=== PATIENT | female | born 1975 | race Caucasian/White ===

== ENCOUNTER 2016-07-24 15:47 | Emergency (ER) | payer MEDICARE, MEDICAID ==
[~2016-07-24 15:47] MED LIST: ARIP400S2 IM; CLON0.2T PO; CYCL5TAB PO; LAMO100T2 PO; LISI2.5T PO; LOVA40TA PO; METF500T4 PO; MIRT15TA6 PO; OLAN20TA16 PO
[2016-07-24 16:01] VITALS: BP 126/82; PULSE 88; RESP 20; O2SAT 95
[2016-07-24 16:26] LABS: APPEARANCE,URINE HAZY (CLEAR,HAZY); COLOR,URINE YELLOW (YELLOW)
[2016-07-24 16:27] LABS: OCCULT BLOOD,URINE LARGE (NEGATIVE); UROBILINOGEN,URINE NORMAL (NORMAL)
[2016-07-24 19:21] LABS: BASOPHILS % (AUTO) 0.2 % (0-3); EOSINOPHILS % (AUTO) 1.7 % (0-5); MONOCYTES % (AUTO) 5.7 % (4-12); Mean Corpuscular Hemoglobin 30.1 pg (27.0-35.0); Mean Corpuscular Volume 88.4 fL (81-100); NEUTROPHILS % (AUTO) 80.2 % (40-74); Platelet Count 260 bil/L (150-400)
[2016-07-24] MEDS ORDERED: cefTRIAXone Inj 2,000 MG in Dextrose 5% Minibag Plus 50 ML IV ONE (20:25)
--- NOTE | 2016-07-24 20:26 | ED.REPORT ---
HPI-Abd Pain F Under 42 Date of Service Jul 24, 2016 ED Provider: Myron Wood MD History of Present Illness: OCC This is a 41 year old female with a history of DM, HTN, bipolar disorder, asthma , UTIs presenting to the emergency department complaining of progressively worsening dysuria that began 3 days ago. Associated symptoms include diffuse abdominal pain and nausea. Tylenol has not provided pain relief. Denies decreased PO intake, fever, chills, vomiting, constipation, or diarrhea. Nursing Notes Stated Complaint: POSS UTI/STOMACH PAIN Chief Complaint: Female Abdominal Pain Nursing Notes Reviewed: Yes ([employer] [place] not reconciled) Allergies: Coded Allergies: ciprofloxacin (Verified Allergy, Unknown, UNKNOWN, 07/24/16) pregabalin (Verified Allergy, Unknown, UNKNOWN, 07/24/16) varenicline (Verified Allergy, Unknown, 07/24/16) Sulfa (Sulfonamide Antibiotics) (Verified Adverse Reaction, Severe, GI UPSET, 07/24/16) ibuprofen (Verified Adverse Reaction, Severe, nausea, 07/24/16) varenicline tartrate (Verified Adverse Reaction, Severe, SUICIDAL IDEATION , 07/24/16) Scheduled Amoxicillin (Amoxicillin) 500 Mg Tablet 500 MG PO TID Aripiprazole (Abilify Maintena Inj) 400 Mg Suser.vial 400 MG IM monthly Clonidine (Clonidine) 0.2 Mg Tablet 0.4 MG PO HS Clonidine (Clonidine) 0.2 Mg Tablet 0.2 MG PO QAM Clonidine (Clonidine) 0.2 Mg Tablet 0.2 MG PO daily at 1400 Lamotrigine (Lamotrigine) 100 Mg Tablet 100 MG PO HS Lisinopril (Lisinopril) 2.5 Mg Tablet 2.5 MG PO DAILY Lovastatin (Lovastatin) 40 Mg Tablet 40 MG PO HS Metformin (Metformin) 500 Mg Tablet 500 MG PO BIDWM Mirtazapine (Mirtazapine) 15 Mg Tablet 15 MG PO HS Olanzapine (Olanzapine) 20 Mg Tablet 20 MG PO HS Scheduled PRN Cyclobenzaprine (Cyclobenzaprine) 5 Mg Tablet 5 MG PO HS PRN PRN Spasm Fluconazole (Diflucan) 150 Mg Tablet 150 MG PO ONCE PRN PRN yeast infeciton Phenazopyridine (Phenazopyridine) 200 Mg Tablet 200 MG PO TID PRN PRN dysuria General Time Seen by MD: 20:22 Chief Complaint Dysuria Hx Obtained From: Patient Arrived By: Walk-in Sudden in Onset?: Yes Onset Occurred: 3 days ago Symptom Duration: Since onset Severity: Current: Moderate Pertinent Negative: Pt denies other symptoms Recent Healthcare: No recent doctor visit, No recent hospitalization Similar Sx Previous: No Past Medical History Past Medical History Notes: Last psychiatric hospitalization was 06/10/2015 to 06/15/2015 to [facility]. Past Medical History Per EMR: 1. Bipolar disorder Type I, Depressed type 2. Posttraumatic stress disorder, chronic. 3. Polysubstance dependence. 4. Borderline personality disorder with chronic suicidality. 5. Antisocial personality disorder. 6. Restless leg syndrome 7. Morbid obesity 8. Anxiety 9. Multiple suicide attempts 10. Musculoskeletal Trauma (S/p Lt foot repair in childhood) 11. Asthma 12. UTIs Reports: Diabetes mellitus, Hypertension Past Surgical History Musculoskeletal Trauma (s/p LT foot RPR in childhood) Reports: Hysterectomy Family History Reviewed, not relevant Smoking History Current Every Day Smoker Social History Alcohol Use: Denies alcohol use Drug Use: THC Other Social History: Lives alone, Local resident Ambulatory Status Independent Review of Systems Constitutional: Denies: Chills, Fever Respiratory: Denies: Non-productive cough, Shortness of breath Cardiovascular: Denies: Chest pain GI: Reports: Abdominal pain, Nausea, Denies: Constipation, Diarrhea, Vomiting Female: Reports: Dysuria Complete sys rev & neg: except as marked. Physical Exam Initial Vital Signs Vital Signs (First) Date Time Temp Pulse Resp B/P Pulse Ox O2 Delivery O2 Flow Rate FiO2 07/24/16 16:01 37.5 88 20 126/82 95 Room Air Initial VS: Reviewed, Vital signs normal Head / Eyes: Atraumatic, Normocephalic, PERRL ENT: Mucous membranes moist, Conjunctiva normal, No scleral icterus Neck: Supple, Non-tender, Full range of motion Extremities: Vascular intact, Neuro intact, No swelling, No tenderness Skin: Warm, Dry, No cyanosis Neurologic: Alert, Oriented, Nonfocal Psychiatric: Mood/affect normal General/Constitutional: Awake, Alert Respiratory / Chest: Breath sounds NL, Breath sounds = bilat, No respiratory distress, No rales, No rhonchi, No wheezing Fatigued but cooperative, does not appear toxic Cardiovascular: Heart rate NL, Regular rhythm, Heart sounds NL, Peripheral circulation NL Abdomen: Non-tender, No guarding, No rebound, BS normoactive obese Back: Inspection NL, Non-tender, No CVA tenderness Interpretation & Diagnostics Lab Results Interpretation Result Diagram: 07/24/16189907/24/161899 Test 07/24/16 16:00 07/24/16 19:00 Urine Color Yellow (YELLOW) Urine Appearance Hazy (CLEAR,HAZY) Urine pH 6.0 (5.0-8.0) Urine Specific [employer] 1.030 (1.003-1.035) Urine Protein 100mg/dL (NEG,TRACE) Urine Glucose (UA) Negativemg/dL (NEGATIVE) Urine Ketones Negativemg/dL (NEGATIVE) Urine Occult Blood Large (NEGATIVE) Urine Nitrite Positive (NEGATIVE) Urine Bilirubin Negative (NEGATIVE) Urine Urobilinogen Normalmg/dL (NORMAL) Urine Leukocyte Esterase Small (NEGATIVE) Urine RBC 3-10/hpf (0-2) Urine WBC 0-5/hpf (0-5) Urine Epithelial Cells None/hpf (NONE-MOD) Urine Crystals None seen (NONE SEEN) Urine Bacteria Few/hpf (NONE-FEW) Urine Hyaline Casts None/lpf (NONE) Urine Granular Casts None seen (NONE SEEN) Urine Waxy Casts None seen (NONE SEEN) Urine Red Blood Cell Casts None seen (NONE SEEN) Urine White Blood Cell Casts None seen (NONE SEEN) Urine Mucus None seen (None Seen) Urine Trichomonas None seen (NONE SEEN) Urine Yeast None (NONE SEEN) Urinalysis Comment None Urine Culture Reflexed Indicated White Blood Count 12.5th/mm3 (3.8-10.1) Red Blood Count 4.82mil/mm3 (3.90-5.20) Hemoglobin 14.5g/dL (12.0-15.6) Hematocrit 42.6% (35.0-46.0) Mean Corpuscular Volume 88.4fL (81-100) Mean Corpuscular Hemoglobin 30.1pg (27.0-35.0) Mean Corpuscular Hemoglobin Concent 34.0% (32.0-37.0) Red Cell Distribution Width 13.4% (12.3-15.4) Platelet Count 260bil/L (150-400) Neutrophils (%) (Auto) 80.2% (40-74) Lymphocytes (%) (Auto) 12.0% (14-46) Monocytes (%) (Auto) 5.7% (4-12) Eosinophils (%) (Auto) 1.7% (0-5) Basophils (%) (Auto) 0.2% (0-3) Hold Purple Top Tube Received (Received) Hold Blue Top Tube Received (Received) Sodium Level 138mEq/L (134-144) Potassium Level 4.1mEq/L (3.5-5.2) Chloride Level 100mEq/L (97-108) Carbon Dioxide Level 23mmol/L (18-29) Blood Urea Nitrogen 12mg/dL (6-20) Creatinine 0.64mg/dL (0.57-1.00) Estimat Glomerular Filtration Rate 148mL/min (>59) Glucose Level 126mg/dL (60-99) Calcium Level 9.3mg/dL (8.5-10.1) Total Bilirubin 0.2mg/dL (0.0-1.2) Aspartate Amino Transf (AST/SGOT) 13U/L (0-50) Alanine Aminotransferase (ALT/SGPT) 22U/L (0-32) Alkaline Phosphatase 70U/L (25-150) Total Protein 6.7g/dL (6.4-8.4) Albumin 4.1g/dL (3.4-5.0) Hold Red Top Tube Received (Received) Hold [place] Top Tube Received (Received) Hold [place] Top Tube Received (Received) Lab Results Interpretation: C mild leukocytosis CMP normal UA positive Re-Eval/Medical Decision Med Decision/Clinical Course This is a 41-year-old male well-known to previous psychiatric visits now presents with dysuria for the past several days. She does not appear toxic, but is fatigued. She does not have CVA tenderness, her abdomen is soft nontender. She is polite and cooperative that today. Her urine is positive for markers of infection, she does have a mild leukocytosis. She received an initial IV dose of ceftriaxone as we are sorting things out. She reports amoxicillin works really well for her with UTIs before , she is allergic for quinolones and trimethoprim sulfa, so she is being discharged on empiric course of 10 days of amoxicillin, as well as a prescription for phenazopyridine and dose of Diflucan. Routine precautions reviewed. She is discharged in good condition Source of Hx: Old records Differential Diagnosis: Positive: Urinary tract infection, Negative: Abscess, Acute coronary syndrome, Ectopic preg ruptured, Ectopic , Gun shot wound abdomen, Intrauterine , Pancreatitis, Peritonitis, Pyelonephritis, Stab wound abdomen Counseled Regarding: Diagnosis, Lab results, Need for follow-up Discharge & Departure Primary Impression: Urinary tract infection Urinary tract infection type: acute cystitis Hematuria presence: without hematuria Qualified Code: N30.00 - Acute cystitis without hematuria Disposition: Home Discharge Condition All VS Reviewed: Yes Condition: Stable Additional Instructions: 1. You received an injection of the antibiotic ceftriaxone tonight. He can start the prescription for amoxicillin tomorrow. 2. Take amoxicillin 500 mg 3 times a day for 10 days. 3. Take phenazopyridine 200 mg 3 times a day as needed for painful urination. Note: This medication has a side effect of turning your urine orange. 4. Continue to drink plenty of fluids 5. Symptoms are expected to be improving rapidly with antibiotics. 6. We sent a urine culture tonight - this can take a few days for results and is to confirm that you are on the right antibiotics. Call [phone] for results in a few days. 7. If you develop a yeast infection after the antibiotics as can occasionally happen, take diflucan 150mg one tab x1. 8. Follow up with your regular doctor. Referrals: Jodi Butcher (PCP) Scribe Attestation Portions of this note were transcribed by Roro Infante. I, Dr. Wood personally performed the history, physical exam and medical decision-making; I reviewed and confirmed the accuracy of the information in the transcribed note. Signed by: clemencia Graves. 07/24/2016, 23:30. Myron Wood MD Jul 24, 2016 20:26 RORO INFANTE Jul 24, 2016 20:34
[2016-07-24] MEDS ORDERED: HYDROmorphone 0.5 mg/0.5 mL iSecure Syringe IVPUSH ONE (20:35)
[2016-07-24] MEDS ORDERED: Phenazopyridine 97.5 mg Tablet PO ONE (20:35)
[2016-07-24] MEDS ORDERED: PHEN-777 PO (20:59)
[2016-07-24] MEDS ORDERED: AMOX500T2 PO (20:59)
[2016-07-24] MEDS ORDERED: FLUC150T48 PO (20:59)
[2016-07-24 21:18] VITALS: BP 130/82; PULSE 92; RESP 18; O2SAT 95
== END 2016-07-24 21:18 | disposition home or self-care (01) ==
LOC: SED 15:47
DX: N30.00 Acute cystitis without hematuria (principal); B96.20 Unspecified Escherichia coli [E. coli] as the cause of diseases classified elsewhere; I10 Essential (primary) hypertension; J45.909 Unspecified asthma, uncomplicated; E11.9 Type 2 diabetes mellitus without complications; Z79.84 Long term (current) use of oral hypoglycemic drugs; F17.200 Nicotine dependence, unspecified, uncomplicated; Z88.1 Allergy status to other antibiotic agents; Z88.2 Allergy status to sulfonamides; Z88.8 Allergy status to other drugs, medicaments and biological substances
CPT/HCPCS: 80053; 81000; 85025; 87077; 87086; 87088; 87186; 96365; 96375; 99285; J0696; J1170

== ENCOUNTER 2016-09-16 00:43 | Emergency (ER) | payer MEDICARE, MEDICAID ==
[~2016-09-16] VITALS: Ht 165.1 cm; Wt 135.0 kg
[~2016-09-16 00:43] MED LIST changes: +AMOX500T2 PO; +FLUC150T48 PO; +PHEN-777 PO
[2016-09-16 00:45] VITALS: BP 120/89; PULSE 79; RESP 18; O2SAT 96
[2016-09-16] MEDS ORDERED: _Nitrofurantoin Macrocrystal 100 mg Capsule PO SCH (01:40)
[2016-09-16] MEDS ORDERED: HYDROcodone-APAP 5-325 mg Tablet PO ONE (01:40)
[2016-09-16] MEDS ORDERED: _Ondansetron ODT 4 mg Tablet PO PRN (01:40)
[2016-09-16] MEDS ORDERED: _HYDROcodone/APAP 5-325 mg Tablet PO PRN (01:40)
[2016-09-16] MEDS ORDERED: Ondansetron 8 mg ODT Tablet PO ONE (01:40)
--- NOTE | 2016-09-16 01:40 | ED.REPORT ---
HPI- Female Date of Service Sep 16, 2016 ED Provider: Myron Wood MD This is a 41 year old female with a history of DM, HTN, bipolar disorder, asthma , and UTIs presents to the ED due to a UTI symptoms that have not resolved. She finished 2 courses of antibiotics 3 to 4 days ago to treat the infection. Associated symptoms include kidney pain and nausea. She denies fever and vomiting. Nursing Notes Stated Complaint: UTI Chief Complaint: Female Abdominal Pain Nursing Notes Reviewed: Yes Allergies: Coded Allergies: ciprofloxacin (Verified Allergy, Unknown, UNKNOWN, 07/24/16) pregabalin (Verified Allergy, Unknown, UNKNOWN, 07/24/16) varenicline (Verified Allergy, Unknown, 07/24/16) Sulfa (Sulfonamide Antibiotics) (Verified Adverse Reaction, Severe, GI UPSET, 07/24/16) ibuprofen (Verified Adverse Reaction, Severe, nausea, 07/24/16) varenicline tartrate (Verified Adverse Reaction, Severe, SUICIDAL IDEATION , 07/24/16) Scheduled Amoxicillin (Amoxicillin) 500 Mg Tablet 500 MG PO TID Aripiprazole (Abilify Maintena Inj) 400 Mg Suser.vial 400 MG IM monthly Clonidine (Clonidine) 0.2 Mg Tablet 0.4 MG PO HS Clonidine (Clonidine) 0.2 Mg Tablet 0.2 MG PO QAM Clonidine (Clonidine) 0.2 Mg Tablet 0.2 MG PO daily at 1400 Lamotrigine (Lamotrigine) 100 Mg Tablet 100 MG PO HS Lisinopril (Lisinopril) 2.5 Mg Tablet 2.5 MG PO DAILY Lovastatin (Lovastatin) 40 Mg Tablet 40 MG PO HS Metformin (Metformin) 500 Mg Tablet 500 MG PO BIDWM Mirtazapine (Mirtazapine) 15 Mg Tablet 15 MG PO HS Olanzapine (Olanzapine) 20 Mg Tablet 20 MG PO HS Scheduled PRN Cyclobenzaprine (Cyclobenzaprine) 5 Mg Tablet 5 MG PO HS PRN PRN Spasm Fluconazole (Diflucan) 150 Mg Tablet 150 MG PO ONCE PRN PRN yeast infeciton Fluconazole (Diflucan) 150 Mg Tablet 150 MG PO ONCE PRN PRN yeast infection Phenazopyridine (Phenazopyridine) 200 Mg Tablet 200 MG PO TID PRN PRN dysuria General Time Seen by MD: 01:25 Chief Complaint Dysuria Hx Obtained From: Patient Arrived By: Walk-in Sudden in Onset?: Yes Onset Occurred: More than a week ago... (2 weeks) Symptom Duration: Since onset (2 weeks) Recent Healthcare: Recent doctor visit Similar Sx Previous: Yes Past Medical History Past Medical History Notes: Last psychiatric hospitalization was 06/10/2015 to 06/15/2015 to [facility]. Past Medical History Per EMR: 1. Bipolar disorder Type I, Depressed type 2. Posttraumatic stress disorder, chronic. 3. Polysubstance dependence. 4. Borderline personality disorder with chronic suicidality. 5. Antisocial personality disorder. 6. Restless leg syndrome 7. Morbid obesity 8. Anxiety 9. Multiple suicide attempts 10. Musculoskeletal Trauma (S/p Lt foot repair in childhood) 11. Asthma 12. UTIs Reports: Diabetes mellitus, Hypertension Past Surgical History Musculoskeletal Trauma (s/p LT foot RPR in childhood) Reports: Hysterectomy Family History Reviewed, not relevant Smoking History Unknown if Ever Smoker Social History Alcohol Use: Denies alcohol use Drug Use: THC Other Social History: Lives alone, Local resident Ambulatory Status Independent Review of Systems Constitutional: Denies: Fever GI: Denies: Vomiting Female: Reports: Dysuria, Urinary urgency Complete sys rev & neg: except as marked. Physical Exam Initial Vital Signs Vital Signs (First) Date Time Temp Pulse Resp B/P Pulse Ox O2 Delivery O2 Flow Rate FiO2 09/16/16 00:45 36.2 79 18 120/89 96 Room Air Initial VS: Reviewed, Vital signs normal Head / Eyes: Atraumatic, Normocephalic, PERRL ENT: Mucous membranes moist, Conjunctiva normal Neck: Supple, Non-tender Respiratory: Breath sounds normal, Clear to auscultation Cardiovascular: Regular rate & rhythm, Heart sounds normal Abdomen / GI: Soft, Non-tender, No guarding Extremities: Vascular intact, Neuro intact, No swelling Skin: Warm, Dry Female Genitourinary: Exam deferred General/Constitutional: Awake, Cooperative normal mood calm and cooperative Psychiatric: Affect NL, Not suicidal did not assault staff Interpretation & Diagnostics Interpretation & Diagnostics: Recent urine culture demonstrates Escherichia coli resistant to amoxicillin Re-Eval/Medical Decision Med Decision/Clinical Course This is a 41-year-old female well known to the emergency Department from previous visits, who presents calm and collected today complaining of dysuria. An Escherichia coli UTI, and records indicate a recent culture indicating resistance to amoxicillin, but due to the patient's allergy profile it appears she was treated with 2 courses amoxicillin, which she finished 4 days ago, but is now having worsening dysuria, little bit of flank discomfort low but of nausea. She has had no fever. On clinical exam she appears well-she is not febrile, not clinically toxic or ill, does not have overt CVA tenderness. She is status post a hysterectomy. The patient is allergic to sulfa, allergic to Cipro. Floxin, and is insistent to amoxicillin-Macrodantin sensitivity was demonstrated, and the patient once or twice a day medication and she had difficulty with the multiple doses for amoxicillin. I think this is reasonable. She is being discharged in attending course of Macrodantin, she is given a prepack for some hydrocodone and ondansetron for symptomatic management, and I written a dose of Diflucan for use once the course of Avelox is complete. The need for follow-up is reviewed. Patient is discharged in stable condition. Source of Hx: Old records Differential Diagnosis: Positive: Urinary tract infection, Negative: , complete, , incomplete, , inevitable, , missed, Ectopic Counseled Regarding: Diagnosis, Lab results, Need for follow-up, When/why to return to ED Discharge & Departure Impression: Primary Impression: Urinary tract infection Urinary tract infection type: acute cystitis Hematuria presence: without hematuria Qualified Code: N30.00 - Acute cystitis without hematuria Disposition: Home Discharge Condition All VS Reviewed: Yes Condition: Stable Additional Instructions: 1. Your last urine culture indicated an E. Coli bacteria infection resistant to amoxicillin, which would explain why you are having symptoms despite that medication. 2. Take the antibiotic macrodantin 100mg twice a day for ten days. 3. You can take diflucan 150mg after finishing the antibiotics to prevent a yeast infection. 4. Call [phone] for urine culture results in 2-3 days to help confirm this is the best antibiotic. 5. Take ondansetron 8mg (let dissolve under tongue) up to every 4 hours as needed. 6. Return if new/worsening symptoms: fever, increase Nausea/vomiting, etc.. Referrals: Jodi Butcher (PCP) Scribe Attestation Portion of this note were transcribed by Mariana Lua. I, Dr. Wood, personally performed the history, physical exam, and medical decision-making: I reviewed and confirmed the accuracy for the information in the transcribed note. Signed by: clemencia Arteaga, 09/16/16 0300 copies to: Jodi Butcher Matthew F MD Sep 16, 2016 01:40 Mariana Lua Sep 16, 2016 01:53
[2016-09-16] MEDS ORDERED: FLUC150T48 PO (01:49)
[2016-09-16 02:19] VITALS: BP 118/85; PULSE 65; RESP 18; O2SAT 98
[2016-09-16 02:44] LABS: APPEARANCE,URINE CLOUDY (CLEAR,HAZY); COLOR,URINE YELLOW (YELLOW); OCCULT BLOOD,URINE TRACE (NEGATIVE); UROBILINOGEN,URINE NORMAL (NORMAL)
== END 2016-09-16 02:23 | disposition home or self-care (01) ==
LOC: SED 00:43
DX: N30.00 Acute cystitis without hematuria (principal); I10 Essential (primary) hypertension; E11.9 Type 2 diabetes mellitus without complications; J45.909 Unspecified asthma, uncomplicated; Z79.84 Long term (current) use of oral hypoglycemic drugs; Z88.1 Allergy status to other antibiotic agents; Z88.2 Allergy status to sulfonamides; Z88.8 Allergy status to other drugs, medicaments and biological substances

== ENCOUNTER 2016-09-27 02:23 | Emergency (ER) | payer MEDICARE, MEDICAID ==
[~2016-09-27] VITALS: Ht 165.1 cm; Wt 135.0 kg
[2016-09-27 02:27] VITALS: BP 156/109; PULSE 109; RESP 22; O2SAT 97
--- NOTE | 2016-09-27 02:40 | ED.REPORT ---
HPI-Abd Pain F Under 42 Date of Service Sep 27, 2016 ED Provider: Erlin Herrera MD Patient is a 41 year old female with a history of bipolar disorder, diabetes mellitus, hypertension and recent UTI who is well known in the ED presents complaining of ongoing UTI symptoms, which have now been present for several weeks. She reports dysuria, increased urinary urgency, increased urinary frequency, and urinary hesitancy. However she has now developed bilateral flank pain. The patient states that she has been drinking a large quantity of fluid. She denies nausea, vomiting, fever, or chills. Patient was first diagnosed with a UTI several weeks ago, treated with two rounds of Amoxicillin unsuccessfully. However she was found to have an E. Coli positive infection and was changed to Macrodantin on September 16. However, she reports that she only received a 5 day supply of the Macrodantin (instead of 10) and that her symptoms have continued. Nursing Notes Stated Complaint: POSSIBLE UTI,BACK AND ABDOMINAL PAIN Chief Complaint: Female Abdominal Pain Nursing Notes Reviewed: Yes Allergies: Coded Allergies: ciprofloxacin (Verified Allergy, Unknown, UNKNOWN, 07/24/16) pregabalin (Verified Allergy, Unknown, UNKNOWN, 07/24/16) varenicline (Verified Allergy, Unknown, 07/24/16) Sulfa (Sulfonamide Antibiotics) (Verified Adverse Reaction, Severe, GI UPSET, 07/24/16) ibuprofen (Verified Adverse Reaction, Severe, nausea, 07/24/16) varenicline tartrate (Verified Adverse Reaction, Severe, SUICIDAL IDEATION , 07/24/16) Scheduled Amoxicillin (Amoxicillin) 500 Mg Tablet 500 MG PO TID Aripiprazole (Abilify Maintena Inj) 400 Mg Suser.vial 400 MG IM monthly Cefuroxime Axetil (Cefuroxime) 500 Mg Tablet 500 MG PO BID Clonidine (Clonidine) 0.2 Mg Tablet 0.4 MG PO HS Clonidine (Clonidine) 0.2 Mg Tablet 0.2 MG PO QAM Clonidine (Clonidine) 0.2 Mg Tablet 0.2 MG PO daily at 1400 Lamotrigine (Lamotrigine) 100 Mg Tablet 100 MG PO HS Lisinopril (Lisinopril) 2.5 Mg Tablet 2.5 MG PO DAILY Lovastatin (Lovastatin) 40 Mg Tablet 40 MG PO HS Metformin (Metformin) 500 Mg Tablet 500 MG PO BIDWM Mirtazapine (Mirtazapine) 15 Mg Tablet 15 MG PO HS Olanzapine (Olanzapine) 20 Mg Tablet 20 MG PO HS Scheduled PRN Cyclobenzaprine (Cyclobenzaprine) 5 Mg Tablet 5 MG PO HS PRN PRN Spasm Fluconazole (Diflucan) 150 Mg Tablet 150 MG PO ONCE PRN PRN yeast infeciton Fluconazole (Diflucan) 150 Mg Tablet 150 MG PO ONCE PRN PRN yeast infection Phenazopyridine (Phenazopyridine) 200 Mg Tablet 200 MG PO TID PRN PRN dysuria Phenazopyridine (Phenazopyridine) 200 Mg Tablet 200 MG PO TID PRN PRN dysuria General Time Seen by MD: 02:39 Chief Complaint Dysuria, Flank pain right, Flank pain left Hx Obtained From: Patient Arrived By: Walk-in Sudden in Onset?: No Onset Occurred: More than a week ago... (1 month) Symptom Duration: Since onset Location: : Abdomen lower Quality: Painful Severity: Current: Moderate Severity: Maximum: Moderate Recent Healthcare: No recent hospitalization, Recent doctor visit Similar Sx Previous: Yes Past Medical History Past Medical History Notes: Last psychiatric hospitalization was 06/10/2015 to 06/15/2015 to [facility]. Past Medical History Per EMR: 1. Bipolar disorder Type I, Depressed type 2. Posttraumatic stress disorder, chronic. 3. Polysubstance dependence. 4. Borderline personality disorder with chronic suicidality. 5. Antisocial personality disorder. 6. Restless leg syndrome 7. Morbid obesity 8. Anxiety 9. Multiple suicide attempts 10. Musculoskeletal Trauma (S/p Lt foot repair in childhood) 11. Asthma 12. UTIs Reports: Diabetes mellitus, Hypertension Past Surgical History Musculoskeletal Trauma (s/p LT foot RPR in childhood) Reports: Hysterectomy Family History Reviewed, not relevant Smoking History Unknown if Ever Smoker Social History Alcohol Use: Denies alcohol use Drug Use: THC Other Social History: Lives alone, Local resident Ambulatory Status Independent Review of Systems Constitutional: Denies: Chills, Fever GI: Denies: Nausea, Vomiting Female: Reports: Dysuria, Flank pain, Urinary frequency, Urinary urgency Complete sys rev & neg: except as marked. Physical Exam Initial Vital Signs Vital Signs (First) Date Time Temp Pulse Resp B/P Pulse Ox O2 Delivery O2 Flow Rate FiO2 09/27/16 02:27 37.1 109 22 156/109 97 Room Air Initial VS: Reviewed Head / Eyes: Atraumatic, Normocephalic, PERRL ENT: Mucous membranes moist, Conjunctiva normal, No scleral icterus Neck: Supple, Non-tender, Full range of motion Skin: Warm, Dry, No cyanosis Neurologic: Alert, Oriented, Nonfocal Psychiatric: Mood/affect normal, Behavior normal, Normal thought content General/Constitutional: Awake, Alert, No acute distress Appearance / Presentation: Positive: Obese, morbidly Respiratory / Chest: Breath sounds NL, Breath sounds = bilat, No respiratory distress, No rales, No rhonchi, No wheezing Cardiovascular: Heart rate NL, Regular rhythm, Heart sounds NL, No murmurs Abdomen: Soft, Non-tender, No guarding, No rebound Back: No midline vertebral tend Flank / Spine / Paraspinal: Positive: Flank tender L, Flank tender R Interpretation & Diagnostics Lab Results Interpretation Test 09/27/16 02:30 Urine Color Straw (YELLOW) Urine Appearance Slightly cloudy Urine pH 6.0 (5.0-8.0) Urine Specific [place] 1.005 (1.003-1.035) Urine Protein Negativemg/dL (NEG,TRACE) Urine Glucose (UA) Negativemg/dL (NEGATIVE) Urine Ketones Negativemg/dL (NEGATIVE) Urine Occult Blood Trace (NEGATIVE) Urine Nitrite Negative (NEGATIVE) Urine Bilirubin Negative (NEGATIVE) Urine Urobilinogen Normalmg/dL (NORMAL) Urine Leukocyte Esterase Large (NEGATIVE) Urine RBC 0-2/hpf (0-2) Urine WBC 11-50/hpf (0-5) Urine Epithelial Cells Moderate/hpf (NONE-MOD) Urine Crystals None seen (NONE SEEN) Urine Bacteria Moderate/hpf (NONE-FEW) Urine Hyaline Casts None/lpf (NONE) Urine Granular Casts None seen (NONE SEEN) Urine Waxy Casts None seen (NONE SEEN) Urine Red Blood Cell Casts None seen (NONE SEEN) Urine White Blood Cell Casts None seen (NONE SEEN) Urine Mucus None seen (None Seen) Urine Trichomonas None seen (NONE SEEN) Urine Yeast None (NONE SEEN) Urinalysis Comment None Urine Culture Reflexed Indicated Re-Eval/Medical Decision Med Decision/Clinical Course Med Decision/Clinical Course: 41-year-old presents with a persistent urinary tract infection, now causing some flank discomfort. She had been on amoxicillin which was noted to be the one resistance that this particular Escherichia coli exhibits. She had then been treated with Macrodantin, but has progressed with upper tract pain now. The bug is otherwise pansensitive, and so she is begun with Ceftin by mouth. Discharged home now in stable condition with Pyridium for discomfort, Ceftin twice a day for ten days. Discontinue Macrodantin. Source of Hx: Old records Re-Evaluation/Progress : Time of Eval: 03:02 Patient Status: Condition improved Re-Evaluation/Progress Note: Patient does still have a UTI and will be started on a new antibiotic. Patient understands and agrees with the plan to be discharged home. Discharge instructions and follow-up discussed. All questions were addressed. Return to the ED warnings given. Counseled Regarding: Diagnosis, Lab results, Need for follow-up, When/why to return to ED Discharge & Departure Primary Impression: Urinary tract infection Urinary tract infection type: acute pyelonephritis Qualified Code: N10 - Acute pyelonephritis Additional Impression: Pyelonephritis Disposition: Home Discharge Condition All VS Reviewed: Yes Condition: Stable Patient Instructions: Urinary Tract Infection in Women (ED) Additional Instructions: Begin cefuroxime (Ceftin) twice daily for ten full days. The Escherichia coli formerly recovered in your urine is sensitive to cefuroxime. Stop the Macrodantin. Pyridium if needed for discomfort, up to three times daily Drink plenty of fluids as you are currently doing. Follow-up with your doctor in the office. Return if you develop intractable vomiting or high fever or other new symptoms of concern. Referrals: Jodi Butcher (PCP) Mariaelena Attestation Portions of this note were transcribed by Hannah Patel. I, Dr. Herrera personally performed the history, physical exam and medical decision-making; I reviewed and confirmed the accuracy of the information in the transcribed note. Signed by: Mariaelena Camilo, 09/27/2016 [id number] copies to: Jodi Butcher Christopher W MD Sep 27, 2016 02:40 Hannah Patel Sep 27, 2016 02:45
[2016-09-27 02:49] LABS: APPEARANCE,URINE SLIGHTLY CLOUDY (CLEAR,HAZY); COLOR,URINE STRAW (YELLOW)
[2016-09-27 02:50] LABS: OCCULT BLOOD,URINE TRACE (NEGATIVE); UROBILINOGEN,URINE NORMAL (NORMAL)
[2016-09-27] MEDS ORDERED: Phenazopyridine 97.5 mg Tablet PO ONE (02:55)
[2016-09-27] MEDS ORDERED: PHEN-777 PO (02:57)
[2016-09-27] MEDS ORDERED: CEFU500T61 PO (02:57)
== END 2016-09-27 03:42 | disposition home or self-care (01) ==
LOC: SED 02:23
DX: N10 Acute pyelonephritis (principal); F31.9 Bipolar disorder, unspecified; E11.9 Type 2 diabetes mellitus without complications; I10 Essential (primary) hypertension; E66.01 Morbid (severe) obesity due to excess calories; J45.909 Unspecified asthma, uncomplicated; Z87.440 Personal history of urinary (tract) infections; Z68.42 Body mass index [BMI] 45.0-49.9, adult; Z79.84 Long term (current) use of oral hypoglycemic drugs; Z88.1 Allergy status to other antibiotic agents; Z88.8 Allergy status to other drugs, medicaments and biological substances; Z88.2 Allergy status to sulfonamides; Z88.6 Allergy status to analgesic agent